=== PATIENT | female | born 1940 | race Caucasian/White ===

== ENCOUNTER 2021-03-25 08:04 | Inpatient (IN) | payer MEDICARE, BC ==
[~2021-03-25] VITALS: Ht 160 cm; Wt 59.0 kg
[2021-03-25] VITALS (19 sets, daily range): BP systolic 105–155; BP diastolic 47–88
[~2021-03-25 08:04] MED LIST: ALEN35TA11 PO; ATOR10TA PO; LEVO75TA56 PO; MESA1.2T PO; tobramycin sulfate 1.2gm vial ONE
[2021-03-25] MEDS ORDERED: vancomycin 1,000mg inj ONE ×2 (08:48→10:45)
--- NOTE | 2021-03-25 09:03 | NUR ---
Called the lab to do the preop blood works efrain as patient going for surgery at 10:00 AM
--- NOTE | 2021-03-25 09:18 | NUR ---
[employer] Alexsandra called me, according to her patient has rex ring that patient gave to her son at bedside. I went to patient room to ask if she has any jewelry, she said yes. One of the son said "yes, I have it here (pointing on his pocket)"
[2021-03-25] MEDS ORDERED: ROPIVAcaine 0.5% (5mg/ml) 30ml vial ONE (09:20)
[2021-03-25] MEDS ORDERED: ketorolac trometh. 30mg/ml inj. ONE (09:20)
[2021-03-25 09:22] LABS: BASOPHILS % (AUTO) 0.4 % (0-1); EOSINOPHILS # (AUTO) 0.1 X10'3 (0-0.9); EOSINOPHILS % (AUTO) 1.1 % (0-6); LYMPHOCYTES % (AUTO) 14.3 % (21-51); MEAN CORPUSCULAR HEMOGLOBIN 32.8 PG (27.0-31.0); MEAN CORPUSCULAR VOLUME 93.6 FL (78-98); MEAN PLATELET VOLUME 5.9 FL (7.4-10.4); MONOCYTES # (AUTO) 0.7 X10'3 (0-0.9); MONOCYTES % (AUTO) 10.6 % (2-12); NEUTROPHILS % (AUTO) 73.6 % (42-75); PRE OP HEMATOCRIT 29.8 % (35.0-45.0); PRE OP PLATELET COUNT 367 X10'3 (140-440); RED BLOOD COUNT 3.18 X10'6 (4.20-5.60)
[2021-03-25 09:27] LABS: PRE OP HEMOGLOBIN 10.4 g/dL (12.0-16.0)
[2021-03-25] MEDS: ringers solution, lacted 1,000 ML IV SCH ×2 (09:38→22:38)
[2021-03-25 09:40] LABS: PRE OP PARTIAL THROMB. TIME 27 SECONDS (22-32)
[2021-03-25 09:47] LABS: ALBUMIN 2.6 G/DL (3.4-5.0); ALBUMIN/GLOBULIN RATIO 0.7 (1.1-1.5); ALKALINE PHOSPHATASE 120 IU/L (46-116); BLOOD UREA NITROGEN 10 MG/DL (7-18); C-REACTIVE PROTEIN 12.84 MG/DL (0.0-0.5); CALCIUM 8.7 MG/DL (8.5-10.1); CHLORIDE 105 MMOL/L (99-107); CREATININE 0.77 MG/DL (0.40-0.90); PRE OP ALT 26 U/L (30-65); PRE OP ANION GAP 11 (8-16); PRE OP AST 19 U/L (10-37); PRE OP BILIRUB, TOTAL 0.5 MG/DL (0.0-1.0); PRE OP GLUCOSE 100 MG/DL (70-104); PRE OP POTASSIUM 3.9 MMOL/L (3.4-5.1); PRE OP SODIUM 141 MMOL/L (135-145); TOTAL CARBON DIOXIDE 24.8 MMOL/L (24-32); TOTAL PROTEIN 6.3 G/DL (6.4-8.2); eGFR 72 ML/MIN
[2021-03-25] MEDS ORDERED: fentaNYL/PF 50MCG/1 ML 2ML syringe ONE (10:08)
[2021-03-25] MEDS ORDERED: MIDAZolam 1 MG/ML 5ML VIAL ONE (10:36)
[2021-03-25] MEDS ORDERED: ceFAZolin 1000mg inj ONE ×3 (10:45)
[2021-03-25] MEDS ORDERED: propofol inj 20 ML IV ONE (11:05)
[2021-03-25] MEDS ORDERED: LIDOcaine 1%/PF 5ML 10 MG/ML VIAL ONE (11:05)
[2021-03-25] MEDS ORDERED: diphenhydrAMINE 50 mg/ml inj ONE (11:05)
[2021-03-25] MEDS ORDERED: ondansetron/PF 4mg/2ml inj IV PRN ×2 (11:15→12:30)
[2021-03-25] MEDS ORDERED: morphine 2 MG/ML inj. syringe IV PRN (11:15)
[2021-03-25] MEDS ORDERED: ROPIVAcaine 0.2% (10 MG/5 ML) BOLUS INJECTION ADDCANAL PRN (11:15)
[2021-03-25] MEDS ORDERED: ringers solution, lacted 1,000 ML IV SCH (11:15)
[2021-03-25] MEDS ORDERED: HYDROmorphone/PF 0.2 MG/ML SYRINGE IV PRN (11:15)
--- NOTE | 2021-03-25 12:04 | NUR ---
Received from OR via , accompanied by Anesthesiologist DR JACKMAN and report given by Anesthesiolgist. PT PRESNETS WITH 20G RIGHT HAND, JAUN DRAIN RIGHT KNEE, VSS. Addendum: 03/25/21 at 1240 by Jenae Ardon RN, RN Amended: Links added.
[2021-03-25] MEDS ORDERED: meperidine/PF 25mg/ml syringe ONE (12:14)
[2021-03-25] MEDS ORDERED: acetaminophen 325mg tablet PO PRN (12:30)
[2021-03-25] MEDS ORDERED: HYDROcodone/acetaminophen 10/325mg tab PO PRN (12:30)
[2021-03-25] MEDS ORDERED: diphenhydrAMINE 25mg capsule PO PRN ×2 (12:30)
[2021-03-25] MEDS ORDERED: magnesium hydroxide 30ml (MOM) UD suspension PO PRN (12:30)
[2021-03-25] MEDS ORDERED: oxyCODONE IR 5mg (immed. release) tablet PO PRN (12:30)
[2021-03-25] MEDS ORDERED: HYDROmorphone inj. 0.5 MG/0.5 ML DISP.SYRIN IV PRN (12:30)
[2021-03-25] MEDS ORDERED: HYDROmorphone 1 mg/ml syringe IV PRN (12:30)
[2021-03-25] MEDS ORDERED: bisacodyl 10mg suppository rectal RC PRN (12:30)
[2021-03-25] MEDS ORDERED: ROPIVAcaine 0.2%/PF PUMP/bolus 545 ML ADDCANAL SCH (12:30)
--- NOTE | 2021-03-25 13:07 | NUR ---
Patient in room [facility]. I have received report from Jenae AUGUSTIN and had the opportunity to ask questions and assume patient care.
--- NOTE | 2021-03-25 13:33 | NUR ---
Report called to receiving nurse, QUINN AUGUSTIN. [facility], PT HOOKED UP TO MONITORS, BED IN LOW LOCKED POSITION, PT GIVEN CALL LIGHT, CHARGE NURSE NOTIFIED PT IN ROOM. VSS. Addendum: 03/25/21 at 1335 by Jenae Ardon RN, RN Amended: Links added.
[2021-03-25 13:42] LABS: APPEARANCE,SYNOVIAL FLUID CLOUDY; COLOR,SYNOVIAL FLUID RED; SYN WBC 30250 /CU MM (0-200)
[2021-03-25 13:43] LABS: SYN RBC 73500 /CU MM (0)
[2021-03-25] MEDS: acetaminophen 325mg tablet PO SCH ×2 (14:11→22:38)
[2021-03-25] MEDS: potassium cl 20mEq in 1/2 NS 1,000 ML IV SCH (14:12)
[2021-03-25] MEDS: ceFAZolin/D5W- 1GM premix 50 ML IV SCH (15:14)
--- NOTE | 2021-03-25 18:36 | NUR ---
Problems reprioritized. Patient report given, questions answered & plan of care reviewed with s[place]han.
[2021-03-25] MEDS ORDERED: vancomycin/NS 1 GM ADD-VANTAGE 250 ML IV SCH (20:00)
[2021-03-25] MEDS: sennosides 8.6mg tablet PO SCH (21:00)
[2021-03-26 00:15] VITALS: BP 136/50
[2021-03-26] MEDS: ceFAZolin/D5W- 1GM premix 50 ML IV SCH ×3 (01:14→16:40)
[2021-03-26] MEDS: acetaminophen 325mg tablet PO SCH ×4 (02:00→20:29)
[2021-03-26 06:30] VITALS: BP 148/73
--- NOTE | 2021-03-26 06:40 | NUR ---
Patient in room [facility]. I have received report from DEMETRIA Bauman and had the opportunity to ask questions and assume patient care.
[2021-03-26 06:46] LABS: BASOPHILS % (AUTO) 0.6 % (0-1); EOSINOPHILS # (AUTO) 0.2 X10'3 (0-0.9); EOSINOPHILS % (AUTO) 2.8 % (0-6); HEMATOCRIT 25.1 % (35.0-45.0); HEMOGLOBIN 8.7 g/dl (12.0-16.0); LYMPHOCYTES # (AUTO) 1.5 X10'3 (1.1-4.8); LYMPHOCYTES % (AUTO) 23.6 % (21-51); MEAN CORPUSCULAR HEMOGLOBIN 32.7 PG (27.0-31.0); MEAN CORPUSCULAR HGB CONC 34.5 g/dL (33.0-36.5); MEAN CORPUSCULAR VOLUME 94.8 FL (78-98); MEAN PLATELET VOLUME 6.2 FL (7.4-10.4); MONOCYTES # (AUTO) 0.6 X10'3 (0-0.9); MONOCYTES % (AUTO) 9.3 % (2-12); NEUTROPHILS # (AUTO) 3.9 X10'3 (1.8-7.7); NEUTROPHILS % (AUTO) 63.7 % (42-75); PLATELET COUNT 376 X10'3 (140-440); RED BLOOD COUNT 2.65 X10'6 (4.20-5.60); RED CELL DISTRIBUTION WIDTH 12.9 % (11.5-14.5); WHITE BLOOD COUNT 6.2 X10'3 (4.5-11.0)
--- NOTE | 2021-03-26 06:47 | NUR ---
Problems reprioritized. Patient report given, questions answered & plan of care reviewed with Adrianna RN.
[2021-03-26] MEDS: potassium cl 20mEq in 1/2 NS 1,000 ML IV SCH ×4 (07:12→20:30)
[2021-03-26 07:15] LABS: ANION GAP 8 (8-16); CHLORIDE 104 MMOL/L (99-107); CREATININE 0.63 MG/DL (0.40-0.90); SODIUM 136 MMOL/L (135-145); TOTAL CARBON DIOXIDE 24.5 MMOL/L (24-32); eGFR > 90 ML/MIN
[2021-03-26] MEDS: aspirin 325mg tablet PO SCH (09:05)
[2021-03-26] MEDS: levoTHYROXINE 75mcg tablet PO SCH (09:06)
[2021-03-26] MEDS: mesalamine 1.2gm ER tablet PO SCH (09:06)
[2021-03-26] MEDS: atorvastatin 10mg tablet PO SCH (09:06)
[2021-03-26] MEDS: HYDROcodone/acetaminophen 10/325mg tab PO PRN ×2 (09:09→14:14)
[2021-03-26] MEDS ORDERED: FLU VACC QS2021-22(6MOS UP)/PF 60 MCG/0.5 ML SYRINGE IM ONE (10:00)
[2021-03-26 11:00] VITALS: BP 137/78
--- NOTE | 2021-03-26 18:30 | NUR ---
Patient in room [facility]. I have received report from CARLO and had the opportunity to ask questions and assume patient care.
[2021-03-26 19:00] VITALS: BP 144/77
[2021-03-26] MEDS ORDERED: vancomycin/NS 1 GM ADD-VANTAGE 250 ML IV SCH (20:00)
[2021-03-26] MEDS: celeCOXIB 100mg capsule PO SCH (20:25)
[2021-03-26] MEDS: sennosides 8.6mg tablet PO SCH (20:27)
[2021-03-26 23:30] VITALS: BP 150/59
[2021-03-27] MEDS: ceFAZolin/D5W- 1GM premix 50 ML IV SCH ×2 (00:44→07:44)
[2021-03-27] MEDS: acetaminophen 325mg tablet PO SCH ×2 (02:26→07:45)
[2021-03-27] MEDS: HYDROcodone/acetaminophen 10/325mg tab PO PRN ×2 (04:46→18:46)
--- NOTE | 2021-03-27 06:30 | NUR ---
Problems reprioritized. Patient report given, questions answered & plan of care reviewed with SHI.
[2021-03-27 07:00] VITALS: BP 131/49
[2021-03-27 07:11] LABS: BASOPHILS % (AUTO) 0.6 % (0-1); EOSINOPHILS # (AUTO) 0.2 X10'3 (0-0.9); EOSINOPHILS % (AUTO) 3.4 % (0-6); HEMATOCRIT 27.1 % (35.0-45.0); HEMOGLOBIN 9.1 g/dl (12.0-16.0); LYMPHOCYTES % (AUTO) 13.3 % (21-51); MEAN CORPUSCULAR HEMOGLOBIN 32.5 PG (27.0-31.0); MEAN CORPUSCULAR HGB CONC 33.8 g/dL (33.0-36.5); MEAN CORPUSCULAR VOLUME 96.3 FL (78-98); MEAN PLATELET VOLUME 6.4 FL (7.4-10.4); MONOCYTES # (AUTO) 0.5 X10'3 (0-0.9); MONOCYTES % (AUTO) 7.2 % (2-12); NEUTROPHILS # (AUTO) 5.5 X10'3 (1.8-7.7); NEUTROPHILS % (AUTO) 75.5 % (42-75); PLATELET COUNT 457 X10'3 (140-440); RED BLOOD COUNT 2.81 X10'6 (4.20-5.60); RED CELL DISTRIBUTION WIDTH 13.1 % (11.5-14.5); WHITE BLOOD COUNT 7.3 X10'3 (4.5-11.0)
[2021-03-27] MEDS: atorvastatin 10mg tablet PO SCH (07:45)
[2021-03-27] MEDS: mesalamine 1.2gm ER tablet PO SCH (07:45)
[2021-03-27] MEDS: levoTHYROXINE 75mcg tablet PO SCH (07:45)
[2021-03-27] MEDS: aspirin 325mg tablet PO SCH (08:42)
[2021-03-27] MEDS: celeCOXIB 100mg capsule PO SCH (08:42)
[2021-03-27] MEDS ORDERED: CefTRIAXone 2gm/D5W 50ml BAG 50 ML IV SCH (10:20)
[2021-03-27 11:00] VITALS: BP 119/57
[2021-03-27] MEDS ORDERED: acetaminophen 325mg tablet PO PRN (12:30)
[2021-03-27] MEDS ORDERED: FLU VACC QS2021-22(6MOS UP)/PF 60 MCG/0.5 ML SYRINGE IM ONE (16:25)
--- NOTE | 2021-03-27 17:26 | NUR ---
[facility] infusion nurse at bedside teaching patient about home infusion.
--- NOTE | 2021-03-27 18:17 | NUR ---
Discharge instructions given to patient and son present at bedside. Patient and son verbalized understanding of all instructions made including PICC line home care, JAUN drain and recording of output, follow up with Dr. Fortune, when to call the physician, signs and symptoms to watch for, OnQ ball teaching and how to remove it,. Patient told me she still has [place] at home that she can take for pain. I also encouraged patient to call Dr. Fortune for any problem or if she need more pain medicine. Patient has a brown bag at bedside with PICC line supplies and IV antibiotic. Patient and son was informed that a home health nurse will follow up to set up appointment for home visit and that case management assistant already arranged this. Addendum: 03/27/21 at 1845 by Mook Henriquez RN Late entry: Patient received a new and full OnQ ball. Patient has been educated on how to use it and verbalized understanding
--- NOTE | 2021-03-27 18:21 | NUR ---
Problems reprioritized. Patient report given, questions answered & plan of care reviewed with Natalie AUGUSTIN.
[2021-03-27] MEDS ORDERED: lactobacillus rhamnosus 10,000 MMU CELLS/CAPSULE PO SCH (20:00)
[2021-03-28] MEDS ORDERED: VANCOMYCIN LEVEL IV ONE (19:30)
== END 2021-03-27 18:52 | disposition home health service (06) | DRG 487 ==
LOC: SUR 3N 08:04 → UNDOADMIN 08:04 → SUR 3N 09:02 → UNDOADMIN 09:02
PROVIDERS: ADMIT Orthopaedic Surgery; ATTEND Orthopaedic Surgery
PROC: 3E0U029 Introduction of Other Anti-infective into Joints, Open Approach (ICD-10-PCS; 2021-03-25)
PROC: 0SUV09Z Supplement Right Knee Joint, Tibial Surface with Liner, Open Approach (ICD-10-PCS; 2021-03-25)
PROC: 0S9C3ZZ Drainage of Right Knee Joint, Percutaneous Approach (ICD-10-PCS; 2021-03-25)
PROC: 0SPC09Z Removal of Liner from Right Knee Joint, Open Approach (ICD-10-PCS; principal; 2021-03-25 10:08)
PROC: 3E02340 Introduction of Influenza Vaccine into Muscle, Percutaneous Approach (ICD-10-PCS; 2021-03-27)
PROC: 02HV33Z Insertion of Infusion Device into Superior Vena Cava, Percutaneous Approach (ICD-10-PCS; 2021-03-27)
PROC: B548ZZA Ultrasonography of Superior Vena Cava, Guidance (ICD-10-PCS; 2021-03-27)
PROC: 3E0T3BZ Introduction of Anesthetic Agent into Peripheral Nerves and Plexi, Percutaneous Approach (ICD-10-PCS; 2021-03-27)
DX: T84.53XA Infection and inflammatory reaction due to internal right knee prosthesis, initial encounter (principal); Z20.822 Contact with and (suspected) exposure to COVID-19; M54.50 Low back pain, unspecified; M81.0 Age-related osteoporosis without current pathological fracture; E78.5 Hyperlipidemia, unspecified; M65.861 Other synovitis and tenosynovitis, right lower leg; Y79.2 Prosthetic and other implants, materials and accessory orthopedic devices associated with adverse incidents; E03.9 Hypothyroidism, unspecified; M93.261 Osteochondritis dissecans, right knee; Z96.659 Presence of unspecified artificial knee joint; Z23 Encounter for immunization; Z88.0 Allergy status to penicillin; Z88.2 Allergy status to sulfonamides; Y92.89 Other specified places as the place of occurrence of the external cause
CPT/HCPCS: 36415; 36573; 80051; 80053; 82565; 82948; 85025; 85610; 85651; 85730; 86140; 86885; 86900; 86901; 87070; 87075; 87081; 87635; 89051; 93005; 97116; 97161; 97530; A6258; A6449; A7000; C1713; C1758; C1776; G0378; J0690; J0696; J1200; J1885; J2175; J2250; J2405; J2704; J2795; J3010; J3260; J3370; J3480; J7030; J7120